=== PATIENT | male | born 1960 | race Two or more races ===

== ENCOUNTER 2021-11-29 22:29 | Emergency (ER) | payer OTHER ==
[~2021-11-29] VITALS: Ht 175.3 cm; Wt 79.0 kg
[2021-11-29] MEDS ORDERED: NITROGLYCERIN 0.4MG TABLET SL SL PRN (22:45)
[2021-11-29] MEDS ORDERED: MORPHINE SULFATE 4 MG/ML CPJ (NOT FOR IM USE) IV ONE (22:45)
[2021-11-29] MEDS ORDERED: SODIUM CHLORIDE 0.9% 250 ML IV ONE ×2 (23:15→23:30)
[2021-11-29] MEDS ORDERED: ASPIRIN 325MG EC TABLET PO ONE (23:15)
[2021-11-29] MEDS ORDERED: MORPHINE SULFATE 2 MG/ML CPJ (NOT FOR IM USE) IV ONE (23:30)
[2021-11-29 23:33] LABS: BASOPHILS % 0.5 % (0.0-2.0); CHLORIDE 105 mEq/L (98-107); EOSINOPHILS % 2.4 % (0.0-5.0); HEMATOCRIT. 45.3 % (42.0-52.0); HEMOGLOBIN. 15.2 g/dL (14.0-18.0); LYMPHOCYTES % 25.5 % (20.0-50.0); MEAN CORPUSCULAR HEMOGLOBIN 29.2 pg (28.0-32.0); MEAN CORPUSCULAR VOLUME 86.8 fL (80.0-94.0); MEAN PLATELET VOLUME 7.7 fl (7.4-10.4); MONOCYTES % 9.7 % (2.0-8.0); NEUTROPHILS % 61.9 % (40.0-76.0); PLATELET 209 x1000/uL (130-400); RED BLOOD CELL COUNT 5.22 mill/uL (4.7-6.1); RED CELL DISTRIBUTION WIDTH 14.3 % (11.6-14.6)
[2021-11-30] MEDS ORDERED: ESMOLOL 2500MG PREMIX 250 ML IV ONE (00:30)
[2021-11-30] MEDS ORDERED: HYDROMORPHONE HCL/PF 2MG/ML CPJ IV ONE (00:30)
[2021-11-30] MEDS ORDERED: ESMOLOL 2500MG PREMIX 250 ML IV NR (00:45)
[2021-11-30] MEDS ORDERED: ONDANSETRON HCL 4MG/2ML INJ IV NR (01:00)
[2021-11-30] MEDS ORDERED: NICARDIPINE 40MG/200ML PREMIX 200 ML IV PRN (01:45)
[2021-11-30 04:55] VITALS: BP 93/61
[2021-11-30] MEDS ORDERED: IOHEXOL-350 100 ML BOTTLE ONE (06:09)
== END 2021-11-30 05:00 | disposition short-term general hospital (02) ==
LOC: ER 22:54
DX: I71.00 Dissection of unspecified site of aorta (principal); R07.89 Other chest pain; R06.02 Shortness of breath; Z20.822 Contact with and (suspected) exposure to COVID-19
CPT/HCPCS: 36415; 71045; 71275; 74174; 76705; 80053; 83690; 83880; 84484; 85025; 86850; 86900; 86901; 87426; 93005; 96361; 96374; 96375; 96376; 99291; J1170; J2270; J2405; J3490; J7050; Q9967; Z7610

== ENCOUNTER → 2024-12-19 | Day surgery (SDC) | payer MEDICARE, OTHER ==
[~2024-12-19] VITALS: Ht 177.8 cm; Wt 83.9 kg
[~2024-12-19] MED LIST: BALANCED SALT IRRIG SOLN 15ML ONE; BALANCED SALT IRRIG SOLN COMB1 500ML OP NR; CLOP-31 PO; ERGO1250 PO; FENTANYL CITRATE/PF 50MCG/ML 2ML VIAL ONE; HYALURONATE SODIUM 10MG/ML 0.55ML SYRINGE IO ONE; HYDROMORPHONE HCL/PF 1MG/ML INJ IV PRN; LABETALOL 5MG/ML 4ML INJ IV PRN; LOSA50TA41 PO; MEPERIDINE HCL/PF 25MG/ML CPJ IV PRN; METO25TA6 PO; MIDAZOLAM HCL 2 MG/2 ML VIAL ONE; ONDANSETRON HCL 4MG/2ML INJ IV PRN; ROSU40TA PO; TAMS-11 PO; TRYPAN BLUE 0.5 ML DISP.SYRIN IO ONE; UBID100C12 PO
[2024-12-19] MEDS: LACTATED RINGERS 1,000 ML IV SCH (09:38)
== END | disposition home or self-care (01) ==
LOC: OR 08:26
PROVIDERS: ATTEND Ophthalmology
DX: H25.89 Other age-related cataract (principal); I12.9 Hypertensive chronic kidney disease with stage 1 through stage 4 chronic kidney disease, or unspecified chronic kidney disease; N18.30 Chronic kidney disease, stage 3 unspecified; E78.5 Hyperlipidemia, unspecified; K21.9 Gastro-esophageal reflux disease without esophagitis; Z79.899 Other long term (current) drug therapy; Z98.890 Other specified postprocedural states
CPT/HCPCS: 66984; V2632; J3010; J3490 ×2; J2250; Q9957